=== PATIENT | female | born 2005 | race Caucasian/White ===

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

== ENCOUNTER 2025-01-07 12:49 | Outpatient (REF) | payer MEDICAID, SELFPAY ==
--- OUTSIDE RECORDS SUMMARY | 2025-01-07 13:53 | XMS_ITS | Encounter Summary ---
Author Organization [employer] Address [address] [facility] 7t [place] [address] Care Team Providers Care Ankle Patch Molder Name Role Phone Nisreen Wesley MD Primary Care Provider [phone] Estefani Pires MD Primary Care Provider + Encounter Details Date Type Department Care Team (Late st Contact Info) Description 06/22/2024 Telephone [facility] [address] [place], [place] [phone] Nisreen Wesley MD [address] [place], [place] [phone] Social History Tobacco Use Types Packs/Day Years Used Date Smoking Tobacco: Never Smokeless Tobacco: Never Alcohol Use Standard Drinks/Week Comments Never 0 (1 standard drink = 0.6 oz pur e alcohol) Depression Answer Date Recorded Patient Health Questionnaire-9 Score 17 08/20/2023 Patient Health Questionnaire-9 Score 17 08/20/2023 Last PHQ-9: Questionnaire Data Not on file 1 10/20/2022 Housing Stability Answer Date Recorded What is your housing situation today? I have glenna chapa 08/20/[address] you li ve. Do you have problems with any of the following? None of the above 08/20/2023 Food Insecurity Answer Date Recorded Within the past 12 months, y ou worried that your food would run out before you got money to buy more: Never True 08/20/2023 Within the past 12 months,th e food you bought just didn't last and you didn't have enough money to get more: Never True Transportation Answer Date Recorded In the past 12 months, has l ack of transportation kept you from medical appts, meetings, work or from getting things needed for daily living? No 08/20/2023 Utilities Answer Date Recorded In the past 12 months, has t he electric, gas, oil or water company threatened to shut off services in your home? No 08/20/2023 Depression Answer Date Recorded Patient Health Questionnaire-2 Score 5 08/20/2023 Comments Unknown Sex and Gender Information Value Date Recorded Sex Assigned at Female 08/06/2022 10:21 AM EDT Legal Sex Female 10:21 AM EDT Gender Identity Female 08/06/2022 10:21 AM EDT Sexual Orientation Straight 08/06/2022 10 :21 AM EDT documented as of this encounter Plan of Treatment Upcoming Encounters Date Type Department Care Team (Late st Contact Info) Description 02/22/2025 2:00 PM EDT Office Visit [facility] [address] [place] [address] Estefani Pires MD [address] [place] [phone] documented as of this encounter Visit Diagnoses Not on filedocumented in this encounter Additional Health Concerns Assessment Noted Time PHQ-9 Depression Total Score: 17 023 11:31 AM EST documented as of this encounter Care Teams Ankle Patch Molder Relationship Specialty Start Date End Date Nisreen Wesley MD [address] [place] [phone] PCP - General Pediatrics 09/25/17 10/15/24 Estefani Pires MD [address] [place] [phone] PCP - General Internal Medicine 10/16/24 documented as of this encounter
--- OUTSIDE RECORDS SUMMARY | 2025-01-07 13:53 | XMS_ITS | Encounter Summary ---
Author Organization [employer] Address [address] [facility] 7t [place] [address] Care Team Providers Care Stick Puller Name Role Phone Estefani Pires MD Primary Care Provider + Encounter Details Date Type Department Care Team (Latest Contact Info) Description 01/07/2025 Travel Social History Tobacco Use Types Packs/Day Years [...] Patient Health Questionnaire-2 Score 5 08/20/2023 Comments No Sex and Gender Information Value Date Recorded Sex Assigned at Female 08/06/2022 10:21 AM EDT Legal Sex Female 10:21 AM EDT Gender Identity Female 08/06/2022 10:21 AM EDT Sexual Orientation Straight 08/06/2022 10 :21 AM EDT documented as of this encounter Plan of Treatment Upcoming Encounters Date Type Department Care Team (Late st Contact Info) Description 02/22/2025 2:00 PM EDT Office Visit [facility] [address] [place] [address] Estefani Pires MD [address] [place] [address] documented as of this encounter Visit Diagnoses Not on filedocumented in this encounter Additional Health Concerns Assessment Noted Time PHQ-9 Depression Total Score: 17 023 11:31 AM EST documented as of this encounter Care Teams Stick Puller Relationship Specialty Start Date End Date Estefani Pires MD [address] [place] [phone] PCP - General Internal Medicine 10/16/24 documented as of this encounter
--- OUTSIDE RECORDS SUMMARY | 2025-01-07 13:53 | XMS_ITS | Clinical Summary ---
Author Organization [facility] Address [address] [place] [phone] Phone Care Team Providers Care Senior Administrator Support Name Role Phone Unavailable Primary Care Provider Unavailabl e Immunizations Immunization Administration Dates Next Due DTaP / Hep B / IPV 04/04/2006,01/28/2006, 006 DTaP 5 02/06/2007 Hep A, ped/adol 06/30/2007,11/07/2006 Hib (HbOC) 02/06/2007 Hib (PRP-T) 04/04/2006,01/28/2006,2005 Influenza, injectable, trivalent 11/05/2007,06/08,11/07/2006 MMRV 11/07/2006 Pneumococcal Conjugate 02/06/2007,04/04/2006,,2005 Family History Relation Name Status Comments Mother Alive Mother: Asthma, All To Bee stings,seafoof, benadryl Other Family history of ADD/ADHD, Family history of Asthma, Family history of Diabetes mellitus, Family history of Deafness, Family history of Seizure disorder, Family history of Migraines, Family history of Obesity, Family history of Elevated cholesterol Sister Alive Sister: Eczema Social History Tobacco Use Types Packs/Day Years Used Date Smoking Tobacco: Never Assessed Comments Unknown Sex and Gender Information Value Date Recorded Sex Assigned at Not on file Legal Sex Female 4:36 PM EDT Gender Identity Not on file Sexual Orientation Not on file Plan of Treatment Health Maintenance Due Date Last Done Comments IPV Vaccines (4 of 4 - 4-dose series) 2009 04/04/2006, 01/28/2006, 2005 Varicella Vaccines (2 of 2 - 2-dose childhood series) 2009 11/07/2006 DTaP,Tdap,and Td Vaccines (5 - Tdap) 2016 02/06/2007, 04/04/2006, 01/28/2006, Additional history exists HPV Vaccines (1 - 3-dose series) 2020 Men B Vaccine (1 of 2 - Standard) 2021 Influenza Vaccines (#1) 2024 11/05/19 08, 06/30/2007, 11/07/2006 COVID-19 Vaccine ( season) 2024 Hepatitis B Vaccines Completed 04/04/2006, 01/28/2006, 2005 MMR Vaccines Completed 11/07/2006 HIB Vaccines Completed 02/06/2007, 03/08, 01/28/2006, Additional history exists Pneumococcal Vaccine Completed 02/06/2007, 04/04/2006, 01/28/2006, Additional history exists Hepatitis A Vaccines Completed 06/30/2007, 11/07/19 07 Meningococcal Vaccine Aged Out No terri ibeth eligible based on patient's age to complete this topic
--- OUTSIDE RECORDS SUMMARY | 2025-01-07 13:53 | XMS_ITS | Encounter Summary ---
Author Organization [employer] Address [address] [facility] 7t [place] [address] Care Team Providers Care School Transportation Director Name Role Phone Nisreen Wesley MD Primary Care Provider [phone] Estefani Pires MD Primary Care Provider + Reason for Visit * Reason Onset Date Comments Med Refill 11/14/2023 Encounter Details Date Type Department Care Team ([facility] st Contact Info) Description 11/14/2023 Refill [facility] [address] [place], [place] [phone] Nisreen Wesley MD [address] [place] [address] Social History Tobacco Use Types Packs/Day Years [...] Description 02/22/2025 2:00 PM EDT Office Visit [facility] [address] [place] [phone] Estefani Pires MD [address] [place] [address] documented as of this encounter Visit Diagnoses Not on filedocumented in this encounter Additional Health Concerns Assessment Noted Time PHQ-9 Depression Total Score: 17 023 11:31 AM EST documented as of this encounter Care Teams School Transportation Director Relationship Specialty Start Date End Date Nisreen Wesley MD [address] [place] [phone] PCP - General Pediatrics 09/25/17 10/15/24 Estefani Pires MD [address] [place] [phone] PCP - General Internal Medicine 10/16/24 documented as of this encounter
--- OUTSIDE RECORDS SUMMARY | 2025-01-07 13:53 | XMS_ITS | Encounter Summary ---
Author Organization [employer] Address [address] [place] [address] 7t [place] [address] Care Team Providers Care Retail Account Specialist Name Role Phone Nisreen Wesley MD Primary Care Provider [phone] Estefani Pires MD Primary Care Provider + Encounter Details Date Type Department Care Team (Late st Contact Info) Description 10/23/2022 Orders Only [facility] [address] [place], [place] [phone] Narda Gutierrez LPN Social History Tobacco Use Types Packs/Day Years [...] Description 02/22/2025 2:00 PM EDT Office Visit [facility] [address] [place], [place] [phone] Estefani Pires MD [address] [place], [place] [phone] documented as of this encounter Visit Diagnoses Not on filedocumented in this encounter Care Teams Retail Account Specialist Relationship Specialty Start Date End Date Nisreen Wesley MD [address] [place], [place] [phone] PCP - General Pediatrics 09/25/17 10/15/24 Estefani Pires MD [address] [place] [phone] PCP - General Internal Medicine 10/16/24 documented as of this encounter
--- OUTSIDE RECORDS SUMMARY | 2025-01-07 13:53 | XMS_ITS | Encounter Summary ---
Author Organization [facility] Address [address] [place] [address] 7t [place] [address] Care Team Providers Care Barrel Turner Name Role Phone Estefani Pires MD Primary Care Provider + Reason for Referral * Consultation (Routine) - Pending Review Specialty Diagnoses / Procedures Referred By Imani moctezuma Referred To Contact Physical Therapy Diagnoses Arthralgia of left knee Estefani Pires MD [address] [place] [address] Phone: tel: fax: Referral ID Status Reason Start Date Expiration Date Visits Requested Visits Authorized [id number] Pending Review Specialty Services Required 01/07/2025 01/07/2026 1 1 Reason for Visit * Reason Comments Follow-up Encounter Details Date Type Department Care Team ([facility] Contact Info) Description 01/07/2025 11:30 AM EDT Office Visit [facility] [address] [place], [place] [phone] Estefani Pires MD [address] [place], [place] [phone] Positive ESTEFANI (antinuclear antibody) (Primary Dx); Arthralgia of both hands; Arthralgia of left knee Social History Tobacco Use Types Packs/Day Years Used Date Smoking Tobacco: Never Smokeless Tobacco: Never Tobacco Cessation:Counseling Given: Not Answered Alcohol Use Standard Drinks/Week Comments Never 0 [...] AM EDT documented as of this encounter Last Filed Vital Signs Vital Sign Reading Time Taken Comments Blood Pressure 99/62 01/07/2025 11:57 AM EDT Pulse 83 01/07/2025 11:57 AM EDT Temperature 36.3 ??C (97.4 ??F) 01/07/2025 11:57 AM E DT Respiratory Rate 16 01/07/2025 11:57 AM EDT Oxygen Saturation 98% 01/07/2025 11:57 AM EDT Inhaled Oxygen Concentration - - Weight 48.6 kg (107 lb 4 oz) 01/07/2025 11:57 AM EDT Height 147.3 cm (4' 10 ) 01/07/2025 11:57 AM EDT Body Mass Index 22.42 01/07/2025 11:57 AM EDT documented in this encounter Miscellaneous Notes * Patient Education Note - Estefani Pires MD - 01/07/2025 4:25 PM EDT Images from the original note were not included. Patient Education Table of Contents Antinuclear Antibody Test To view videos and all your education online visit, [email or web address] or scan this QR code with your smartphone. Access to this content will in one year. Antinuclear Antibody Test Why am I having this test? This is a test that is used to help diagnose systemic lupus erythematosus (SLE) and other autoimmune diseases. An autoimmune disease is a disease in which the body's own defense system (immune system) attacks its organs. What is being tested? This test checks for antinuclear antibodies (ESTEFANI) in the blood. The presence of ESTEFANI is associated with several autoimmune diseases. It is seen in almost all people with lupus. What kind of sample is taken? A blood sample is required for this test. It is usually collected by inserting a needle into a blood vessel. How are the results reported? Your test results will be reported as either positive or negative. What do the results mean? A positive test result may mean that you have: Lupus. Other autoimmune diseases, such as rheumatoid arthritis, scleroderma, or Sj?gren syndrome. Talk with your health care provider about what your results mean. In some cases, your health care provider may do more testing to confirm the results. More testing may be done because other conditions can sometimes cause a positive result, such as: Liver dysfunction. Myasthenia gravis. Infectious mononucleosis. Questions to ask your health care provider Ask your health care provider, or the department that is doing the test: When will my results be ready? How will I get my results? What are my treatment options? What other tests do I need? What are my next steps? Summary This is a test that is used to help diagnose systemic lupus erythematosus (SLE) and other autoimmune diseases. An autoimmune disease is a disease in which the body's own defense system (immune system) attacks the body. This test checks for antinuclear antibodies (ESTEFANI) in the blood. The presence of ESTEFANI is associated with several autoimmune diseases. It is seen in almost all people with lupus. Your test results will be reported as either positive or negative. Talk with your health care provider about what your results mean. This information is not intended to replace advice given to you by your health care provider. Make sure you discuss any questions you have with your health care provider. Document Released: 2005 Document Updated: 2022-05-27 Document Reviewed: 2022-05-27 Elsevier Patient Education ? 2024 [employer] documented in this encounter Plan of Treatment Upcoming Encounters Date Type Department Care Team (Late st Contact Info) Description 02/22/2025 2:00 PM EDT Office Visit [facility] [address] [place] [address] Estefani Pires MD [address] [place], [place] [phone] Scheduled Orders Name Type Priority Associated Diagnoses Orde r Schedule XR Knee 4+ Views Left Imaging Routine Arthralgia of left knee Ordered: 01/07/2025 Cyclic Citrullinated Peptide (CCP) Antibody (IgG) Lab Routine Positive ESTEFANI (antinuclear antibody) Arthralgia of both hands Expected: 01/07/2025 (Approximate), Expires: 01/07/2026 Anti-DNAse B antibody Lab Routine Positive ESTEFANI (antinuclear antibody) Arthralgia of both hands Expected: 01/07/2025 (Approximate), Expires: 01/07/2026 Sjogrens syndrome-A extractable nuclear antibody Lab Routine Positive ESTEFANI (antinuclear antibody) Arthralgia of both hands Expected: 01/07/2025 (Approximate), Expires: 01/07/2026 Mononucleosis Test, Qualitative Lab Routine Positive ESTEFANI (antinuclear antibody) Arthralgia of both hands Expected: 01/07/2025 (Approximate), Expires: 01/07/2026 Scheduled Referrals Name Type Priority Associated Diagnoses Orde r Schedule Referral to Physical Therapy Outpatient Referral Routine Arthralgia of left knee Expected: 01/07/2025 (Approximate), Expires: 01/07/2026 documented as of this encounter Visit Diagnoses Diagnosis Positive ESTEFANI (antinuclear antibody)- Primary Other and unspecified nonspecific immunological findings Arthralgia of both hands Arthralgia of left knee documented in this encounter Additional Health Concerns Assessment Noted Time PHQ-9 Depression Total Score: 17 08/20/ 023 11:31 AM EST documented as of this encounter Care Teams Barrel Turner Relationship Specialty Start Date End Date Estefani Pires MD [address] [place] [address] PCP - General Internal Medicine 10/16/24 documented as of this encounter
--- OUTSIDE RECORDS SUMMARY | 2025-01-07 13:53 | XMS_ITS | Clinical Summary ---
Author Organization [employer] Address [address] [place] [address] [address] [place] [address] Care Team Providers Care Director Of Design Name Role Phone Nicolas Pires MD Primary Care Provider + Allergies No known active allergies Medications solifenacin (VESIcare) 5 MG tablet Take 5 mg by mouth in the morning. 01/03/2023 Active Concerta 27 MG CR tablet Take 27 mg by mouth in the morning. 07/10/2023 Active desmopressin (DDAVP) 0.2 MG tablet Take 200 mcg by mouth 2 times daily. 01/03/2023 Active sertraline (Zoloft) 25 MG tablet Take 25 mg by mouth Once per day. 02/04/2024 Active loratadine (Claritin) 10 MG tablet Take 1 tablet (10 mg) by mouth if needed each day for allergies. 90 tablet 3 10/23/2024 6 Active albuterol 108 (90 Base) MCG/ACT inhaler Inhale 2 puffs every 6 (six) hours if needed for wheezing. 18 g 10/23/2024 6 Active hydrOXYzine pamoate (Vistaril) 25 MG capsule Take 1 capsule (25 mg) by mouth every 8 (eight) hours if needed for anxiety. 90 capsule 3 10/23/2024 6 Active ibuprofen 400 MG tabletIndicatio ns:Precordial pain 1 tab q 6 hours prn fever or pain. 30 tablet 1 10/23/2024 Active Multiple Vitamin (multivitamin) tablet Take 1 tablet by mouth Once per day. 90 tablet 1 12/29/2024 Active Active Problems Problem Noted Date Diagnosed Date Positive NICOLAS (antinuclear antibody) 01/07/2025 Arthralgia of both hands 12/29/2024 Assessment & Plan (12/29/2024 1:13 PM EDT): Probably DJD, we talked about avoiding cracking of her hands and other joints. Will do inflammatory arthritis workup and follow-up at next appointment Take Tylenol as needed for pain Chronic TMJ pain 12/29/2024 Assessment & Plan (12/29/2024 1:14 PM EDT): I discussed with patient at length the potential causes of this condition including psychological stress, I suggested to discuss it with psychotherapist or psychiatrist. I advised to have full dental evaluation including malocclusion conditions and ask the dentist for an mouth guard to use at night. Follow-up with me after dental evaluation Precordial pain 10/23/2024 Assessment & Plan (10/23/2024 3:52 PM EST): Patient has atypical chest pain, EKG is normal and she doesn't have significant CV RF, unlikely to be cardiac origin. It is most likely muscular or GERD, patient will keep track of symptoms and follow-up with me as needed. Recurrent bronchospasm 10/23/2024 Assessment & Plan (12/29/2024 1:12 PM EDT): Recently treated by [facility], doing well on albuterol as needed. I gave patient information regarding PFT so that she can reschedule it at appropriate time for her. We discussed about avoiding smoking and get all age-appropriate vaccines Assessment & Plan (10/23/2024 2:02 PM EST): Apparently triggered last year by RSV infection. Improved on prednisone, continue albuterol PRN. I will order PFT and Methacholine test to rule out asthma. ADHD 08/11/2024 Assessment & Plan (12/29/2024 1:15 PM EDT): She is doing well on Concerta prescribed by mental health provider We discussed importance of taking medication regularly, avoid all prescribed medications or recreational substances Assessment & Plan (10/23/2024 2:04 PM EST): Patient is taking Concerta but not regularly and is not following up with psychiatrist. Advised to schedule appointment with psychiatrist and address medication use. Discussed with her the importance of taking medication regularly. Anxiety 08/11/2024 Flexural eczema 07/24/2018 Intermittent urinary incontinence 04/28/2018 Seasonal allergies 02/08/2017 Resolved Problems Problem Noted Date Diagnosed Date Resolved Date Encounter for preventive health examination 07/06/2024 10/23/2024 Assessment & Plan (07/06/2024 4:20 PM EDT): Discussed with patient re increase fresh fruit and vegetable intake. Counseled re moderate exercise as tolerated, up to 20min/d Patient feels safe at home. Order T-spot PAP smear, not due, will fu at age 23 or earlier PRN. Lipids/FBS: UTD, next one due in 5y Vaccinations: Will have Influenza IZ today, advised to get Covid series. Will check MMR and Hepatitis titers. Dental visit: Overdue, has appt next mo. Pain in lower limb 06/06/2023 3 Behavior concern 04/28/2018 10/23/2024 Encounters Date Type Department Care Team Description 01/07/2025 11:30 AM EDT Office Visit [facility] [address] [place] [phone] Nicolas Pires MD Positive NICOLAS (antinuclear antibody) (Primary Dx); Arthralgia of both hands; Arthralgia of left knee 01/07/2025 Travel 12/29/2024 11:30 AM EDT Office Visit [address] [address] Nicolas Pires MD Recurrent bronchospasm (Primary Dx); Chronic TMJ pain; Arthralgia of both hands; Attention deficit hyperactivity disorder (ADHD), unspecified ADHD type 12/29/2024 Orders Only [address] [address] Nicolas Pires MD 12/29/2024 Travel 12/25/[address] [address] Nicolas Pires MD 12/18/2024 Population Health Risk Score [facility] ([facility]) Department [address] [place] [phone] Provider, Population Health Generic 10/23/2024 12:00 PM EST Office Visit [facility] [address] [place] [address] Nicolas Pires MD Recurrent bronchospasm (Primary Dx); Precordial pain; Attention deficit hyperactivity disorder (ADHD), unspecified ADHD type 10/23/2024 Travel 10/22/2024 Telephone [facility] [address] [place] [address] Harper Barton MA Chart prep 10/16/2024 Telephone [facility] [address] [place], [place] [phone] Nisreen Wesley MD ER Follow-up from Last 3 Months Immunizations Name Administration Dates Next Due DTaP 02/06/2007 DTaP / Hep B / IPV 04/04/2006,01/28/2006, 006 DTaP / IPV 07/18/2010 DTaP, 5 pertussis antigens 02/06/2007 HPV 9-Valent 05/01/2019,04/28/2018 Hep A, ped/adol, 2 dose 06/30/2007,11/07/2006 Hib (HbOC) 02/06/2007, 6,01/28/2006,11/21 Hib (PRP-T) 04/04/2006,01/28/2006,2005 Influenza injectable quadriv alent preservative free 07/27/2019,06/25/2018,01/05/2015 Influenza, IIV3, injectable 11/05/2007, 7,11/07/2006 Influenza, live, intranasal 07/23/2012 Influenza, seasonal, injecta ble, preservative free 07/06/2024 MMR 07/18/2010,11/07/2006 MMRV 11/07/2006 Meningococcal MCV4P ACYW-135 05/22/2022,04/28/20 18 Pneumococcal Conjugate PCV 7 02/06/2007, 04/04/2006,01/28/2006,11/21 Tdap 04/28/2018 Varicella 07/18/2010 Family History Medical History Relation Name Comments Depression Sister Relation Name Status Comments Sister Social History Tobacco Use Types Packs/Day Years [...] Orientation Straight 08/06/2022 10 :21 AM EDT Last Filed Vital Signs Vital Sign Reading [...] Mass Index 22.42 01/07/2025 11:57 AM EDT Plan of Treatment Upcoming Encounters Date Type Department Care Team (Late st Contact Info) Description 02/22/2025 2:00 PM EDT Office Visit [facility] [address] [place] [address] Nicolas Pires MD [address] [place], [place] [phone] Health Maintenance Due Date Last Done Comments Dental Oral Exam 2005 Dental Prophylaxis 2005 Dental X-Ray: Bitewings 2005 Dental X-Ray: Full Mouth 2005 Family Planning (PISQ) 2020 Chlamydia and Gonorrhea Screening 02/13/2023 02/13/2022 Depression Monitoring (PHQ-9) 02/18/2024 08/20/2023, 08/20/2023 Fluoride Varnish 02/18/2024 08/20/2023 COVID-19 Vaccine ( season) 2024 Depression Screening 08/20/2024 08/20/2023, 08/20/20 SDOH Screening 08/20/2024 08/20/2023 Alcohol/Substance Use Screening 12/29/2025 12/29/2024 Tobacco Screening 01/07/2026 01/07/2025 DTaP/Tdap/Td Vaccines (7 - Td or Tdap) 04/28/2028 04/28/2018, 07/18/2010, 02/06/2007, Additional history exists Zoster Vaccines (1 of 2) 2055 RSV Patients and Patients Aged 60 years or older (1 - 1-dose 75+ series) 2080 Hepatitis B Vaccines Completed 04/04/2006, 01/28/2006, 2005 HIB Vaccines Completed 02/06/2007, 03/08, 04/04/2006, Additional history exists Pneumococcal Vaccine: Pediatrics (0 to 5 Years) and At-Risk Patients (6 to 49) Years) Aged Out 02/06/2007, 04/04/2006, 01/28/2006, Additional history exists No longer eligible based on patient's age to complete this topic Hepatitis A Vaccines Completed 06/30/2007, 11/07/19 07 IPV Vaccines Completed 07/18/2010, 03/08, 01/28/2006, Additional history exists MMR Vaccines Completed 07/18/2010, 10/2006, 11/07/2006 Varicella Vaccines Completed 07/18/2010, 11/07/2006 HPV Vaccines Completed 05/01/2019, 04/28/2018 Meningococcal Vaccine Completed 05/22/2022, 018 HIV Screening Completed 08/14/2023 Influenza Vaccine Completed 07/06/2024, , 06/25/2018, Additional history exists Hepatitis C Screening Completed 12/29/2024, 024 RSV under 20 months Aged Out No longe r eligible based on patient's age to complete this topic Rotavirus Vaccines Aged Out No longer eligible based on patient's age to complete this topic Procedures Procedure Name Priority Date/Time Associated Diagnosis Comments XR HAND 3+ VIEWS BILATERAL Routine 12/29/2024 12:46 PM EDT CBC WITH AUTO DIFFERENTIAL Routine 12/29/2024 12:28 PM EDT Arthralgia of both hands SED RATE BY MODIFIED WESTERGREN Routine 12/29/2024 12:28 PM EDT Arthralgia of both hands Chronic TMJ pain HEPATITIS PANEL, GENERAL Routine 12/29/2024 12:25 PM EDT Arthralgia of both hands URIC ACID Routine 12/29/2024 12:25 PM EDT Arthralgia of both hands RHEUMATOID FACTOR Routine 12/29/2024 12: 25 PM EDT Arthralgia of both hands Chronic TMJ pain C-REACTIVE PROTEIN Routine 12/29/2024 12 :25 PM EDT Arthralgia of both hands NICOLAS SCREEN, IFA, W/REFL TITER AND PATTERN Routine 12/29/2024 12:25 PM EDT Arthralgia of both hands Chronic TMJ pain ECG 12-LEAD Routine 10/23/2024 3:51 PM EST Precordial pain TOPICAL APPLICATION OF FLUORIDE VARNISH Routine 08/20/2023 11:15 AM EST HIV 1/2 ANTIGEN/ANTIBODY, FOURTH GENERATION W/RFL Routine 08/14/2023 2:27 PM EST Weight loss, unintentional ZZZ HISTORICAL CHLAMYDIA/N. GONORRHOEAE RNA, TMA, UROGENITAL Routine 02/13/2022 9:55 AM EDT from Last 3 Months or Most Recently Relevant to Health Maintenance Results * XR Hand 3+Views Bilateral (12/29/2024 12:46 PM EDT) Anatomical Region Laterality Modality Upper Extremities, Hand Bilateral Radiogra phic Imaging 12/29/2024 12:4 6 PM EDT Narrative 12/29/2024 1:40 PM EDT ? [facility] ?[address] ?[place] [address] ?XRay Report ? Signed ? Patient: Morris,Lizmary ?MR#: [id number] ?? 50 ? : 2005 ?Acct:[id number] ? Age/Sex: 19 / F ?ADM Date: 12/29/24 ? Loc: HO.[facility] ? Attending Dr: Nicolas Pires MD ? Ordering Physician: Nicolas Pires MD ?? Date of Service: 12/29/24 ?? Procedure(s): XR Hand Bilat min 3v ?? Accession Number(s): [id number] ? cc: Nicolas Pires MD ? EXAMINATION: ??XR HAND 3 VIEWS BILATERAL ? HISTORY: PAIN ? COMPARISON: There are no prior studies available for comparison. ? FINDINGS: ? Four views of the each hand are submitted. ??Osseous mineralization is ?? normal. ??There is no fracture or dislocation. ??The joint spaces are ?? preserved. ??The soft tissues are unremarkable. ? XR/XR Hand Bilat min 3v ?? IMPRESSION: ? Unremarkable examination of the bilateral hands. ? Electronically signed by: ??Cheng Esparza MD ??12/29/2024 01:36 PM EDT ?? RP ? Dictated By: ?Cheng Esparza MD ? Signed By: ?<Electronically signed by Cheng Esparza MD in OV> ?12/29/24 1336 ? DD/ 1246 ? TD/TT: 12/29/24 1246 ? Rental Salesperson: ? Procedure Note D[place]ter, Image - 12/29/2024 [place] [address] XRay Report Signed Patient: Fátima Morris#: [id number] 50 : 2005Acct:[id number] Age/Sex: 19 FADM Date: 12/29/24 Loc: .[facility] Attending Dr: Nicolas Pires MD Ordering Physician: Nicolas Pires MD Date of Service: 12/29/24 Procedure(s): XR Hand Bilat min 3v Accession Number(s): [id number] cc: Nicolas Pires MD EXAMINATION: XR HAND 3 VIEWS BILATERAL HISTORY: PAIN COMPARISON: There are no prior studies available for comparison. FINDINGS: Four views of the each hand are submitted. Osseous mineralization is normal. There is no fracture or dislocation. The joint spaces are preserved. The soft tissues are unremarkable. XR/XR Hand Bilat min 3v IMPRESSION: Unremarkable examination of the bilateral hands. Electronically signed by: Cheng Esparza MD 12/29/2024 01:36 PM EDT Dictated By: Cheng Esparza MD Signed By: <Electronically signed by Cheng Esparza MD in OV> 12/29/24 1336 DD/ 1246 TD/TT: 12/29/24 1246 Rental Salesperson: Nicolas Pires MD IMG XR PROCEDURES Edited Result - Final * (ABNORMAL) CBC auto differential (12/29/2024 12:28 PM EDT) White Blood Count 9.2 4.8 - 10.8 X10*3/uL [facility] Red Blood Count 4.65 4.20 - 5.50 X10*6/uL [facility] Hemoglobin 13.1 12.0 - 16.0 g/dl [facility] Hematocrit 39.7 37.0 - 47.0 % [facility] Mean Corpuscular Volume 85.4 80.0 - 98.0 fL [facility] Mean Corpuscular Hemoglobin 28.2 27.0 - 33.0 pg [facility] Mean Corpuscular HGB Conc 33.0 31.0 - 35.0 g/dl [facility] Red Cell Distribution Width 13.5 11.0 - 16.0 % [facility] Platelet Count 338 160 - 400 X10*3/uL [facility] Mean Platelet Volume 9.8 9.4 - 12.3 fL [facility] Neutrophils Percent Auto 70.4 45 - 73 % [facility] Imm Gran Pct Auto 0.4 0.0 - 0.4 % [facility] Lymphocytes Percent Auto 19.3(L) 20 - 40 % [facility] Monocytes Percent Auto 6.8 2 - 11 % [facility] Eosinophils Percent Auto 2.6 0 - 4 % [facility] Basophils Percent Auto 0.5 0 - 2 % [facility] NRBC Pct Auto 0.0 0.0 - 0.2 /100WBC [facility] Neutrophils Absolute Auto 6.5 2.0 - 8.3 x10*3/uL [facility] Imm Gran Abs Auto 0.04(H) 0.00 - 0.03 X10*3/uL [facility] Lymphocytes Absolute Auto 1.8 1.2 - 4.9 X10*3/uL [facility] Monocytes Absolute Auto 0.6 0.1 - 1.2 X10*3/uL [facility] Eosinophils Absolute Auto 0.2 0.0 - 0.4 X10*3/uL [facility] Basophils Absolute Auto 0.1 0.0 - 0.2 X10*3/uL [facility] NRBC Abs Auto 0.000 0.0 - 0.012 X10*3/uL [facility] Blood Venous blood specimen / Unknown 12/29/2024 12:28 PM EDT 12/29/2024 1:12 PM EDT us Nicolas Pires MD LAB BLOOD ORDERABLES Fin al Result Performing Organization Address [facility] Co de Phone Number [facility] [address] [place] [address] [phone] * Sed Rate by Modified Esvinren (12/29/2024 12:28 PM EDT) Erythrocyte Sedimentation Rate 4 0 - 20 MM/HR [facility] Comment:Patients with polycy themia and many hemoglobin abnormalitiesmay have depressed sed rates whereas patients with anemiamay have elevated sed rates. Blood Venous blood specimen / Unknown 12/29/2024 12:28 PM EDT 12/29/2024 1:12 PM EDT Nicolas Pires MD LAB BLOOD ORDERABLES Fin al Result Performing Organization Address [facility] Co de Phone Number [facility] [address] [place] [address] [phone] * Hepatitis Panel, General (12/29/2024 12:25 PM EDT) Hepatitis A IgM Nonreactive Nonreactive [facility] Comment:IgM antibodies to GUADARRAMA V not detected; does not exclude earlyacute or recovered HAV infection. ~Hepatitis B Surface Antibody REACTIVE Nonreactive [facility] Comment:REACTIVE: > 11.99 mI U/mL Hepatitis B Core Antibody Nonreactive Nonreactive [facility] Hepatitis C Antibody Nonreactive Nonreactive [facility] Comment:Antibodies to HCV no t detected; does not exclude early acuteHCV infection. Hepatitis B Surface Ag Negative Negative [facility] Blood 12/29/2024 12:2 5 PM EDT 12/29/2024 1:12 PM EDT Nicolas Pires MD LAB BLOOD ORDERABLES Fin al Result Performing Organization Address [facility] de Phone Number [facility] [address] [place] [phone] * Rheumatoid Factor (12/29/2024 12:25 PM EDT) Rheumatoid Factor <13.0 <15.0 IU/mL [facility] Blood Venous blood specimen / Unknown 12/29/2024 12:25 PM EDT 12/29/2024 1:12 PM EDT Nicolas Pires MD LAB BLOOD ORDERABLES Fin al Result Performing Organization Address [facility] de Phone Number [facility] [address] [place] [phone] * C-reactive Protein (12/29/2024 12:25 PM EDT) C Reactive Protein <0.10 < or = 0.50 mg/dL [facility] Blood Venous blood specimen / Unknown 12/29/2024 12:25 PM EDT 12/29/2024 1:12 PM EDT Nicolas Pires MD LAB BLOOD ORDERABLES Fin al Result Performing Organization Address [facility] de Phone Number [facility] [address] [place] [phone] * (ABNORMAL) NICOLAS Screen,IFA, with Reflex to Titer and Pattern (12/29/2024 12:25 PM EDT) Anti Nuclear Antibody Screen POSITIV E(A) NEGATIVE [facility] Comment:NICOLAS IFA is a first l ine screen for detecting thepresence of up to approximately 150 autoantibodies invarious autoimmune diseases. A positive NICOLAS IFA resultis suggestive of autoimmune disease and reflexes totiter and pattern. Further laboratory testing may beconsidered if clinically indicated.For additional information, please refer tohttp://education.[employer]/faq/NLB952(This link is being provided for informational/educational purposes only.) NICOLAS Titer 1:80(A) titer [facility] Comment:A low level NICOLAS tite r may be present in pre-clinicalautoimmune diseases and normal individuals. Reference Range <1:40 Negative 1:40-1:80 Low Antibody Level >1:80 Elevated Antibody Level NICOLAS Pattern Nuclear , Homogen eous(A) [facility] Comment:Homogeneous pattern is associated with systemic lupuserythematosus (SLE), drug-induced lupus and juvenileidiopathic arthritis.AC-1: HomogeneousInternational Consensus on NICOLAS Patterns(https://doi.org/10.1515/lepz-8601-7014)THIS TEST WAS PERFORMED AT:[employer] [place] [phone] NASH MD NICOLAS TITER 2 (REF LAB) [facility] NICOLAS Pattern 2 [facility] NICOLAS TITER 3 [facility] NICOLAS PATTERN 3 [facility] Blood Venous blood specimen / Unknown 12/29/2024 12:25 PM EDT 12/29/2024 1:12 PM EDT us Nicolas Pires MD LAB BLOOD ORDERABLES Fin al Result [facility] [address] [place] [phone] * Uric acid (12/29/2024 12:25 PM EDT) Uric Acid 3.5 2.4 - 5.7 mg/dL [facility] Blood Venous blood specimen / Unknown 12/29/2024 12:25 PM EDT 12/29/2024 1:12 PM EDT Nicolas Pires MD LAB BLOOD ORDERABLES Fin al Result [facility] [address] [place] [phone] * ECG 12 lead (10/23/2024 3:51 PM EST) Narrative Nicolas Pires MD - 10/23/2024 3:51 PM EST NSR @76 bpm, normal axis. Normal ST/T, neg ischemic ??changes. Normal ECG Nicolas Pires MD ECG ORDERABLES Final Re sult * HIV-1/2 Antigen and Antibodies, Fourth Generation, with Reflexes (08/14/2023 2:27 PM EST) [facility] HIV AB/AG Nonreactive Nonreactive [facility] Comment:HIV-1 p24 Ag and/or HIV-1/HIV-2 Ab not detected.A test result that is nonreactive does not exclude thepossibility of exposure to or infection with HIV-1 and/orHIV-2. Nonreactive results in this assay for individualswith prior exposure to HIV-1 and/or HIV-2 may be due toantigen and antibody levels that are below the limit ofdetection of this assay.The [employer] HIV Ag/Ab Combo assay result andsupplemental assay results should be interpreted inconjunction with the patient's clinical presentation,history and other laboratory results. If the results areinconsistent with clinical evidence, additional testing issuggested to confirm the result. Blood Venous blood specimen / Unknown 08/14/2023 2:27 PM EST 08/14/2023 4:12 PM EST us Rupert Coyle MD LAB BLOOD ORDERABLES Final Result Performing Organization Address City/[facility]/ZIP Co de Phone Number [facility] [address] [place] [phone] * CHLAMYDIA/N. GONORRHOEAE RNA, TMA, UROGENITAL (02/13/2022 9:55 AM EDT) Chlamydia trachomatis RNA, TMA, Urogenital NOT DETECTED NOT DETECTED [facility] COMMENT SEE COMMENT [facility] Comment: The analytical performance characteristics of this assay, when used to test SurePath(TM) specimens have been determined by [employer]. The modifications have not been cleared or approved by the FDA. This assay has been validated pursuant to the CLIA regulations and is used for clinical purposes. ?? For additional information, please refer to https://education.[employer]/faq/JEL093 (This link is being provided for information/ educational purposes only.) ?? Neisseria gonorrhoeae RNA, TMA, Urogenital NOT DETECTED NOT DETECTED [facility] 02/13/2022 9:55 AM EDT us Rosemarie Barry MD HISTORICAL/NON ORDERABLE L ABS Final Result Performing Organization Address City/State/[facility] Co de Phone Number [facility] [address] from Last 3 Months or Most Recently Relevant to Health Maintenance Insurance [facility] [employer] [place] [employer] [place] Care Teams Director Of Design Relationship Specialty Start Date End Date Nicolas Pires MD [address] [place] [phone] PCP - General Internal Medicine 10/16/24
--- OUTSIDE RECORDS SUMMARY | 2025-01-07 13:53 | XMS_ITS | Encounter Summary ---
Author Organization [facility] Address [address] [place] [address] [address] [place] [address] Care Team Providers Care Test Technician Name Role Phone Nisreen Wesley MD Primary Care Provider [phone] Estefani Pires MD Primary Care Provider + Reason for Visit * Reason Comments Med Refill Encounter Details Date Type Department Care Team (Late st Contact Info) Description 10/22/2022 Refill [facility] [address] [place], [place] [phone] Rosemarie Barry MD [address] [place], [place] [phone] Social History Tobacco Use Types Packs/Day Years Used Date Smoking Tobacco: Never Assessed Comments Unknown Sex and Gender Information Value Date Recorded Sex Assigned at Female 08/06/2022 10:21 AM EDT Legal Sex Female 10:21 AM EDT Gender Identity Female 08/06/2022 10:21 AM EDT Sexual Orientation Straight 08/06/2022 10 :21 AM EDT documented as of this encounter Miscellaneous Notes * Telephone Encounter - Nisreen Cameron MD - 10/23/2022 12:52 PM EST Was only needing to take med until she ran out. Does not need refill documented in this encounter Plan of Treatment Upcoming Encounters Date Type Department Care Team (Late Contact Info) Description 02/22/2025 2:00 PM EDT Office Visit [facility] [address] [place], [place] [phone] Estefani Pires MD [address] [place] [phone] documented as of this encounter Visit Diagnoses Not on filedocumented in this encounter Care Teams Test Technician Relationship Specialty Start Date End Date Nisreen Wesley MD [address] [place] [phone] PCP - General Pediatrics 09/25/17 10/15/24 Estefani Pires MD [address] [place] [phone] PCP - General Internal Medicine 10/16/24 documented as of this encounter
--- OUTSIDE RECORDS SUMMARY | 2025-01-07 13:53 | XMS_ITS | Encounter Summary ---
Author Organization [facility] Address [address] [place] [phone] Phone Care Team Providers Care High School Coordinator Name Role Phone Terry Aranda MD Primary Care Provider [phone] Encounter Details Date Type Department Care Team (Late st Contact Info) Description 05/23/2017 Conversion Encounter [facility] [place] [address] [place] [address] Social History Tobacco Use Types Packs/Day Years Used Date Smoking Tobacco: Never Assessed Comments Unknown Sex and Gender Information Value Date Recorded Sex Assigned at Not on file Legal Sex Female 4:36 PM EDT Gender Identity Not on file Sexual Orientation Not on file documented as of this encounter Plan of Treatment Not on file documented as of this encounter Visit Diagnoses Not on filedocumented in this encounter Care Teams High School Coordinator Relationship Specialty Start Date End Date Terry Aranda MD [address] [place] [address] PCP - General 05/17/17 12/19/22 documented as of this encounter
--- OUTSIDE RECORDS SUMMARY | 2025-01-07 13:53 | XMS_ITS | Encounter Summary ---
Author Organization [facility] Address [address] [place] [address] Phone Care Team Providers Care Cancer Registry Manager Name Role Phone Terry Aranda MD Primary Care Provider [phone] Encounter Details Date Type Department Care Team (Late st Contact Info) Description 05/07/2011 Documentation EM Family Medicine [address] [place] [address] Family Medicine, Physician [address] [place], [place] [phone] Social History Tobacco Use Types Packs/Day Years [...] on filedocumented in this encounter Care Teams Cancer Registry Manager Relationship Specialty Start Date End Date Terry Aranda MD [address] [place] [address] PCP - General 05/17/17 12/19/22 documented as of this encounter
--- OUTSIDE RECORDS SUMMARY | 2025-01-07 13:53 | XMS_ITS | Encounter Summary ---
Author Organization [facility] Address [address] [place] [address] [address] [place] [address] Care Team Providers Care Fitness Sales Consultant Name Role Phone Nisreen Wesley MD Primary Care Provider [phone] Estefani Pires MD Primary Care Provider + Reason for Visit * Reason Comments Med Refill Encounter Details Date Type Department Care Team (Late st Contact Info) Description 11/25/2022 Refill [facility] [address] [place] [address] [phone] Rosemarie Barry MD [address] [place] [phone] Social History Tobacco Use Types Packs/Day Years [...] Description 02/22/2025 2:00 PM EDT Office Visit [facility] [address] [place] [address] [phone] Estefani Pires MD [address] [place], [place] [phone] documented as of this encounter Visit Diagnoses Not on filedocumented in this encounter Care Teams Fitness Sales Consultant Relationship Specialty Start Date End Date Nisreen Wesley MD [address] [place] [address] PCP - General Pediatrics 09/25/17 10/15/24 Estefani Pires MD [address] [place] [address] PCP - General Internal Medicine 10/16/24 documented as of this encounter
[2025-01-07 14:26] LABS: Monotest Negative (Negative)
[2025-01-12 15:24] LABS: Cyclic Citrullinated Peptide <16 UNITS
[2025-01-12 20:23] LABS: Strep DNASE B Antibody 103 U/mL (<301)
== END 2025-01-07 12:50 | disposition home or self-care (01) ==
LOC: HO.HHCL 12:49
PROVIDERS: Visit Provider Internal Medicine
DX: R76.8 Other specified abnormal immunological findings in serum (principal); M25.541 Pain in joints of right hand; M25.542 Pain in joints of left hand
CPT/HCPCS: 36415; 86200; 86215; 86308

== ENCOUNTER 2025-08-19 12:07 | Outpatient (REF) | payer MEDICAID, SELFPAY ==
[2025-08-19 14:14] LABS: Anion Gap 14 (12-20); Blood Urea Nitrogen 8 mg/dL (9-16); Calcium 9.8 mg/dL (8.4-10.2); Carbon Dioxide 24 mmol/L (22-29); Chloride 107 mmol/L (96-108); Estimated Glomerular Filt Rate > 60; Potassium 4.2 mmol/L (3.3-5.1); Sodium 141 mmol/L (135-145)
[2025-08-19 15:16] LABS: Free T4 (Free Thyroxine) 1.20 ng/dL (0.71-1.85)
--- OUTSIDE RECORDS SUMMARY | 2025-08-19 15:21 | XMS_ITS | Encounter Summary ---
Author Organization [employer] Address [address] [facility] 7[address] [place] [address] Care Team Providers Care Construction Field Engineer Name Role Phone Nisreen Wesley MD Primary Care Provider [phone] Estefani Pires MD Primary Care Provider + Encounter Details Date Type Department Care Team ([facility] st Contact Info) Description 06/22/[address] [facility] [address] [place], [place] [phone] Nisreen Wesley MD [address] [place], [place] [phone] Social History Tobacco Use Types Packs/Day Years [...] documented as of this encounter Care Teams Construction Field Engineer Relationship Specialty Start Date End Date Nisreen Wesley MD [address] [place] [address] PCP - General Pediatrics 09/25/17 10/15/24 Estefani Pires MD [address] [place] [address] PCP - General Internal Medicine 10/16/24 documented as of this encounter
--- OUTSIDE RECORDS SUMMARY | 2025-08-19 15:21 | XMS_ITS | Clinical Summary ---
Author Organization [facility] Address [address] [place] [phone] Phone Care Team Providers Care Service Tech Name Role Phone Unavailable Primary Care Provider [...] 2 - Standard) 2021 Influenza Vaccines (#1) 2025 11/05/19 08, 06/30/2007, 11/07/2006 COVID-19 Vaccine ( season) 2025 Hepatitis B Vaccines Completed 04/04/2006, 01/28/2006, 2005 MMR Vaccines Completed 11/07/2006 HIB Vaccines Completed 02/06/2007, 03/08, 01/28/2006, Additional history exists Pneumococcal Vaccine Completed 02/06/2007, 04/04/2006, 01/28/2006, Additional history exists Hepatitis A Vaccines Completed 06/30/2007, 11/07/19 07 Meningococcal Vaccine Aged Out No terri ibeth eligible based on patient's age to complete this topic
--- OUTSIDE RECORDS SUMMARY | 2025-08-19 15:21 | XMS_ITS | Encounter Summary ---
Author Organization [employer] Address [address] [place] [address] [address] [place] [address] Care Team Providers Care Professor Of French Name Role Phone Nisreen Wesley MD Primary Care Provider [phone] Estefani Pires MD Primary Care Provider + Reason for Visit * Reason Comments Med Refill Encounter Details Date Type Department Care Team ([facility] st Contact Info) Description 11/25/2022 Refill [facility] [address] [place], [place] [phone] Rosemarie Barry MD [address] [place], [place] [phone] Social History Tobacco Use Types Packs/Day Years [...] on filedocumented in this encounter Care Teams Professor Of French Relationship Specialty Start Date End Date Nisreen Wesley MD [address] [place], [place] [phone] PCP - General Pediatrics 09/25/17 10/15/24 Estefani Pires MD [address] [place] [address] [phone] PCP - General Internal Medicine 10/16/24 documented as of this encounter
--- OUTSIDE RECORDS SUMMARY | 2025-08-19 15:21 | XMS_ITS | Encounter Summary ---
Author Organization [employer] Address [address] [facility] [address] [place] [address] Care Team Providers Care Metal Cut Off Saw Tender Name Role Phone Nisreen Wesley MD Primary Care Provider [phone] Estefani Pires MD Primary Care Provider + Encounter Details Date Type Department Care Team (Late st Contact Info) Description 10/23/2022 Orders Only [facility] [address] [place], [place] [phone] Narda Gutierrez LPN Social History Tobacco Use [...] on filedocumented in this encounter Care Teams Metal Cut Off Saw Tender Relationship Specialty Start Date End Date Nisreen Wesley MD [address] [place] [address] PCP - General Pediatrics 09/25/17 10/15/24 Estefani Pires MD [address] [place] [address] PCP - General Internal Medicine 10/16/24 documented as of this encounter
--- OUTSIDE RECORDS SUMMARY | 2025-08-19 15:21 | XMS_ITS | Encounter Summary ---
Author Organization [employer] Address [address] [facility] [address] [place] [address] Care Team Providers Care Cushion Maker Hand Name Role Phone Nisreen Wesley MD Primary Care Provider [phone] Estefani Pires MD Primary Care Provider + Reason for Visit * Reason Onset Date Comments Med Refill 11/14/2023 Encounter Details Date Type Department Care Team (Late st Contact Info) Description 11/14/2023 Refill [facility] [address] [place], [place] [phone] Nisreen Wesley MD [address] [place], [place] [phone] Social History Tobacco Use Types Packs/Day Years [...] is your housing situation today? I have glennakelly chapa 08/20/[address] you [...] documented as of this encounter Care Teams Cushion Maker Hand Relationship Specialty Start Date End Date Nisreen Wesley MD [address] [place] [address] PCP - General Pediatrics 09/25/17 10/15/24 Estefani Pires MD [address] [place] [address] PCP - General Internal Medicine 10/16/24 documented as of this encounter
--- OUTSIDE RECORDS SUMMARY | 2025-08-19 15:21 | XMS_ITS | Encounter Summary ---
Author Organization [employer] Address [address] [facility] [address] [place] [address] Care Team Providers Care Stripping Shovel Operator Name Role Phone Nisreen Wesley MD Primary Care Provider [phone] Estefani Pires MD Primary Care Provider + Reason for Visit * Reason Comments Med Refill Encounter Details Date Type Department Care Team ([facility] st Contact Info) Description 10/22/2022 Refill [facility] [address] [place], [place] [phone] Rosemarie Barry MD [address] [place], [place] [phone] Social History Tobacco Use Types Packs/Day Years [...] documented in this encounter Plan of Treatment Not on file documented as of this encounter Visit Diagnoses Not on filedocumented in this encounter Care Teams Stripping Shovel Operator Relationship Specialty Start Date End Date Nisreen Wesley MD [address] [place], [place] [phone] PCP - General Pediatrics 09/25/17 10/15/24 Estefani Pires MD [address] [place] [address] [place] [address] PCP - General Internal Medicine 10/16/24 documented as of this encounter
--- OUTSIDE RECORDS SUMMARY | 2025-08-19 15:22 | XMS_ITS | Encounter Summary ---
Author Organization [facility] Address [address] [place] [address] Phone Care Team Providers Care Peoplesoft Consultant Name Role Phone Terry Aranda MD Primary Care Provider [phone] Encounter Details Date Type Department Care Team (Late st Contact Info) Description 05/07/2011 Documentation EM Family Medicine [address] [place] [address] Family Medicine, Physician [address] [place], [place] [phone] Social History Tobacco Use Types Packs/Day Years [...] on filedocumented in this encounter Care Teams Peoplesoft Consultant Relationship Specialty Start Date End Date Terry Aranda MD [address] [place] [address] PCP - General 05/17/17 12/19/22 documented as of this encounter
--- OUTSIDE RECORDS SUMMARY | 2025-08-19 15:22 | XMS_ITS | Clinical Summary ---
Author Organization [employer] Address [address] [facility] 7t [place] [address] Care Team Providers Care Generating Plant Superintendent Name Role Phone Estefani Pires MD Primary Care Provider + Allergies Active Allergy Reactions Criticality Noted Date Comments Mangifera Indica Hives 07/28/2025 Pineapple Hives 07/28/2025 [place] Extract Hives 07/28/2025 Medications * This document contains information received from the source organization and may not represent a complete record from that organization. Concerta 27 MG CR tablet Take 27 mg by mouth in the morning. 07/10/20 23 Active desmopressin (DDAVP) 0.2 MG tablet Take 200 mcg by mouth 2 times daily. 01/04/20 23 Active sertraline (Zoloft) 25 MG tablet Take 25 mg by mouth Once per day. 02/04/20 24 Active loratadine (Claritin) 10 MG tablet Take 1 tablet (10 mg) by mouth if needed each day for allergies. 90 tablet 3 10/23/19 25 026 Active hydrOXYzine pamoate (Vistaril) 25 MG capsule Take 1 capsule (25 mg) by mouth every 8 (eight) hours if needed for anxiety. 90 capsule 3 10/23/19 25 026 Active Ventolin HFA 108 (90 Base) MCG/ACT inhaler INHALE 2 PUFFS EVERY 6 HOURS IF NEEDED FOR WHEEZING. 18 g 1 03/09/20 25 Active Additional Information Patient not taking.Reason: Not available (pt hasnt been taking), Reported on 07/28/2025 ibuprofen 400 MG tabletIndicat ions:Arthralg ia of both hands TAKE 1 TABLET BY MOUTH EVERY 6 HOURS NEEDED FOR FEVER OR PAIN 30 tablet 1 05/27/20 25 Active Multiple Vitamin (Daily-Estevan Multivitamin) tablet TAKE 1 TABLET BY MOUTH EVERY DAY 90 tablet 1 07/01/20 25 Active solifenacin (VESIcare) 5 MG tablet Take 1 tablet (5 mg) by mouth Once per day. 90 tablet 1 07/28/20 25 Active solifenacin (VESIcare) 5 MG tablet Take 5 mg by mouth in the morning. 01/04/20 23 025 Discontinued(Re order (will not trigger notification to Pharmacy)) Active Problems Problem Noted Date Diagnosed Date Immunization declined 07/28/2025 Assessment & Plan (07/28/2025 2:29 PM EDT): Declined COVID and influenza immunization today. Positive ESTEFANI (antinuclear antibody) 01/07/2025 Assessment & Plan (01/07/2025 3:00 PM EDT): For over a year now, due to polyarthralgias, I will rule out other autoimmune disorders Consider referral to rheumatology if symptoms continue Arthralgia of left knee 01/07/2025 Assessment & Plan (01/07/2025 3:00 PM EDT): Unclear if related to DJD or posttraumatic arthritis She is wearing a knee brace, referred to PT Arthralgia of both hands 12/29/2024 Assessment & Plan (05/27/2025 4:14 PM EDT): Labs are within normal limits, no evidence of inflammatory arthritis. He may be related to overuse Advised to use hand brace as needed especially for activities that require lifting heavy objects Refer to OT and follow-up with me in 3 months Assessment & Plan (01/07/2025 2:59 PM EDT): She seems to have tenosynovitis, unclear if it overuse versus an impinged tendon. Advised to use hand brace given today at the office, especially overnight and when using her left hand Will order order labs in view of positive ANAs to rule out other autoimmune disorders, will consider to refer to rheumatology Assessment & Plan (12/29/2024 1:13 PM EDT): [...] night. Follow-up with me after dental evaluation Recurrent bronchospasm 10/23/2024 Assessment & Plan (12/29/2024 [...] importance of taking medication regularly. Anxiety 08/11/2024 Assessment & Plan (05/27/2025 4:15 PM EDT): Her family dynamics are a big source of stress. Overall she is doing well, discussed with her the importance of communications daily including Concerta and sertraline. Advised to schedule appointment with psychiatry, she feels safe at home and is able to reach out for safety Encounter for preventative adult health care karuna mccabeation 07/06/2024 Assessment & Plan (07/28/2025 2:25 PM EDT): Discussed with patient re increase fresh fruit and vegetable intake. Counseled re moderate exercise as tolerated, up to 20min/d Patient feels safe at home. PAP smear, not due, will fu at age 23 or earlier PRN. Lipids/FBS: UTD, next one due on 2028 vaccinations: She declined influenza and COVID immunization today dental visit: Overdue, advised to make an appointment with our dental clinic. We discussed about STI prevention, condom use and use of control as needed. Test for STIs Assessment & Plan (07/06/2024 4:20 PM EDT): [...] Dental visit: Overdue, has appt next mo. Flexural eczema 07/24/2018 Intermittent urinary incontinence 04/28/2018 Assessment & Plan (07/28/2025 2:23 PM EDT): Will start her on Vesicare and discussed with patient regarding bladder training, avoid drinking fluids after 8 PM Refer to , no need for DDAVP for now Seasonal allergies 02/08/2017 Resolved Problems Problem Noted Date Diagnosed Date Resolved Date Precordial pain 10/23/2024 05/27/2025 Assessment & Plan (10/23/2024 3:52 PM EST): Patient has atypical chest pain, EKG is normal and she doesn't have significant CV RF, unlikely to be cardiac origin. It is most likely muscular or GERD, patient will keep track of symptoms and follow-up with me as needed. Pain in lower limb 06/06/2023 3 Behavior concern 04/28/2018 10/23/2024 Encounters * This document contains information received from the source organization and may not represent a complete record from that organization. Date Type Department Care Team Description 07/28/2025 10:30 AM EDT Office Visit [facility] [address] [place] [address] Estefani Pires MD Encounter for preventative adult health care examination (Primary Dx); Intermittent urinary incontinence; Screening examination for STI; Immunization declined 07/28/2025 Travel 07/27/[address] [address] Estefani Pires MD CHART PREP 07/27/[address] [address] [facility] 07/23/2025 Patient Outreach [address] [address] Estefani Pires MD Pre-visit Planning ([facility] screening completed on 05/27/25) 07/01/[address] [address] Estefani Pires MD 06/02/[address] [address] Estefani Pires MD november recall 05/27/2025 11:45 AM EDT Office Visit [address] [address] Estefani Pires MD Anxiety (Primary Dx); Arthralgia of both hands 05/27/2025 Travel 05/25/[address] [address] Estefani Pires MD Chart Prep 05/25/[address] [address] Estefani Pires MD Chart Prep from Last 3 Months Immunizations Immunization Administration Dates Next Due DTaP 02/06/2007 DTaP [...] Answer Date Recorded Patient Health Questionnaire-9 Score 11 05/27/2025 Patient Health Questionnaire-9 Score 11 05/27/2025 Last PHQ-9: Questionnaire Data Not on file 0 05/27/2025 Housing Stability Answer Date Recorded What is your housing situation today? I have glenna chapa 05/27/[address] you li ve. Do you have problems with any of the following? None of the above 05/27/2025 Food Insecurity Answer Date Recorded Within the past 12 months, y ou worried that your food would run out before you got money to buy more: Never True 05/27/2025 Within the past 12 months,th e food you bought just didn't last and you didn't have enough money to get more: Never True Transportation Answer Date Recorded In the past 12 months, has l ack of transportation kept you from medical appts, meetings, work or from getting things needed for daily living? No 05/27/2025 Utilities Answer Date Recorded In the past 12 months, has t he electric, gas, oil or water company threatened to shut off services in your home? No 05/27/2025 Depression Answer Date Recorded Patient Health Questionnaire-2 Score 3 05/27/2025 Internet Access Answer Date Recorded Internet Access Q1 Yes 05/27/2025 Internet Access Q2 Not on file 05/27/2025 Comments No Intention Date Recorded No desire to become (finding) 1 Sex and Gender Information Value Date Recorded Sex Assigned at Female 08/06/2022 10:21 AM EDT Legal Sex Female 10:21 AM EDT Gender Identity Female 08/06/2022 10:21 AM EDT Sexual Orientation Straight 08/06/2022 10 :21 AM EDT Last Filed Vital Signs Vital Sign Reading Time Taken Comments Blood Pressure 92/58 07/28/2025 10:44 AM EDT Pulse 60 07/28/2025 10:44 AM EDT Temperature 36.9 C (98.5 F) 07/28/2025 10:44 AM EDT Respiratory Rate 20 07/28/2025 10:44 AM EDT Oxygen Saturation 98% 02/18/2025 10:47 AM EDT Inhaled Oxygen Concentration - - Weight 49.9 kg (110 lb) 07/28/2025 10:44 AM EDT Height 149.9 cm (4' 11 ) 07/28/2025 10:44 AM EDT Body Mass Index 22.22 07/28/2025 10:44 AM EDT Plan of Treatment Health Maintenance Due Date Last Done Comments Dental Oral Exam 2005 Dental Prophylaxis 2005 Dental X-Ray: Bitewings 2005 Dental X-Ray: Full Mouth 2005 Meningococcal B Vaccine (1 of 2 - Standard) 2021 Chlamydia and Gonorrhea Screening 02/13/2023 02/13/2022 Fluoride Varnish 02/18/2024 08/20/2023 COVID-19 Vaccine ( - 2024- season) 2025 Influenza Vaccine (#1) 2025 , 07/27/2019, 06/25/2018, Additional history exists Depression Monitoring 11/27/2025 05/27/2025, 025 Alcohol/Substance Use Screening 05/27/2026 05/27/2025 Disability Screening 05/27/2026 05/27/2025 SDOH Screening 05/27/2026 05/27/2025 Family Planning (PISQ) 07/28/2026 07/28/2025 Tobacco Screening 07/28/2026 07/28/2025 DTaP/Tdap/Td Vaccines (7 - Td or Tdap) [...] Years) and At-Risk Patients (6 to 49) Years Aged Out 02/06/2007, 04/04/2006, 01/28/2006, Additional history exists No longer eligible based on patient's age to complete this topic Hepatitis A Vaccines Completed 06/30/2007, 11/07/19 07 IPV Vaccines Completed 07/18/2010, 03/08, 01/28/2006, Additional history exists MMR Vaccines Completed 07/18/2010, 10/2006, 11/07/2006 Varicella Vaccines Completed 07/18/2010, 11/07/2006 HPV Vaccines Completed 05/01/2019, 04/28/2018 Meningococcal Vaccine Completed 05/22/2022, 018 HIV Screening Completed 08/14/2023 Hepatitis C Screening Completed 12/29/2024, 024 RSV under 20 months Aged Out No longe r eligible based on patient's age to complete this topic Rotavirus Vaccines Aged Out No longer eligible based on patient's age to complete this topic Procedures Procedure Name Priority Date/Time Associated Diagnosis Comments T4, FREE Routine 08/19/2025 12:10 PM EST TSH W/REFLEX TO FT4 Routine 08/19/2025 1 2:10 PM EST Intermittent urinary incontinence BASIC METABOLIC PANEL Routine 08/19/2025 12:10 PM EST Intermittent urinary incontinence HEPATITIS PANEL, GENERAL Routine 12/29/2024 12:25 PM EDT Arthralgia of both hands TOPICAL APPLICATION OF FLUORIDE VARNISH Routine 08/20/2023 11:15 AM EST HIV 1/2 ANTIGEN/ANTIBODY, FOURTH GENERATION W/RFL Routine 08/14/2023 2:27 PM EST Weight loss, unintentional ZZZ HISTORICAL CHLAMYDIA/N. GONORRHOEAE RNA, TMA, UROGENITAL Routine 02/13/2022 9:55 AM EDT from Last 3 Months or Most Recently Relevant to Health Maintenance Results * (ABNORMAL) TSH with Reflex to Free T4 (08/19/2025 12:10 PM EST) TSH reflex Free T4 0.22(L) 0.32 - 4.0 uIU/mL [facility] Blood 08/19/2025 12:1 0 PM EST 08/19/2025 1:04 PM EST us Estefani Pires MD LAB BLOOD ORDERABLES Fin al Result [facility] [address] [place] [phone] * T4, Free (08/19/2025 12:10 PM EST) Free T4 (Free Thyroxine) 1.20 0.71 - 1.85 ng/dL [facility] 08/19/2025 12:1 0 PM EST 08/19/2025 1:04 PM EST Estefani Pires MD LAB BLOOD ORDERABLES Fin al Result Performing Organization Address [facility] Co de Phone Number [facility] [address] [place] [address] [phone] * (ABNORMAL) Basic Metabolic Panel (08/19/2025 12:10 PM EST) Pathologist [facility] Sodium 141 135 - 145 mmol/L [facility] Potassium 4.2 3.3 - 5.1 mmol/L [facility] Comment:Slight Hemolysis.Int erpret result with caution. Chloride 107 96 - 108 mmol/L [facility] Carbon Dioxide 24 22 - 29 mmol/L [facility] Anion Gap 14 12 - 20 [facility] Urea Nitrogen (BUN) 8(L) 9 - 16 mg/dL [facility] Creatinine, Serum 0.69 0.5 - 1.4 mg/dL [facility] Estimated Glomerular Filt Rate >60 [facility] Comment:Chronic Kidney Disea se: Estimated GFR < 60 mL/min/1.90n7Opnmcn Kidney Disease: Estimated GFR < 15 mL/min/1.73m2 Glucose 90 60 - 115 mg/dL [facility] Calcium 9.8 8.4 - 10.2 mg/dL [facility] Blood Venous blood specimen / Unknown 08/19/2025 12:10 PM EST 08/19/2025 1:04 PM EST us Estefani Pires MD LAB BLOOD ORDERABLES Fin al Result Performing Organization Address [facility]/ZIP Co de Phone Number [facility] [address] [place] [address] [phone] * Hepatitis Panel, General (12/29/2024 12:25 PM EDT) Hepatitis A IgM Nonreactive Nonreactive [facility] Comment:IgM antibodies to GUADARRAMA V not detected; does not exclude earlyacute or recovered HAV infection. ~Hepatitis B Surface Antibody REACTIVE Nonreactive [facility] Comment:REACTIVE: > 11.99 mI U/mL Hepatitis B Core Antibody Nonreactive Nonreactive [facility] Hepatitis C Antibody Nonreactive Nonreactive [facility] Comment:Antibodies to HCV no t detected; does not exclude early acuteHCV infection. Hepatitis B Surface Ag Negative Negative [facility] Blood 12/29/2024 12:2 5 PM EDT 12/29/2024 1:12 PM EDT us Estefani Pires MD LAB BLOOD ORDERABLES Fin al Result Performing Organization Address [facility]/ZIP Co de Phone Number [facility] [address] [place] [address] [phone] * HIV-1/2 Antigen and Antibodies, Fourth Generation, with Reflexes (08/14/2023 2:27 PM EST) HIV AB/AG Nonreactive Nonreactive [facility] Comment:HIV-1 p24 Ag and/or HIV-1/HIV-2 Ab not detected.A test result that is nonreactive does not exclude thepossibility of exposure to or infection with HIV-1 and/orHIV-2. Nonreactive results in this assay for individualswith prior exposure to HIV-1 and/or HIV-2 may be due toantigen and antibody levels that are below the limit ofdetection of this assay.The [employer] HIV Ag/Ab Combo assay result andsupplemental assay results should be interpreted inconjunction with the patient's clinical presentation,history and other laboratory results. If the results areinconsistent with clinical evidence, additional testing issuggested to confirm the result. Blood Venous blood specimen / Unknown 08/14/2023 2:27 PM EST 08/14/2023 4:12 PM EST us Rupert Coyle MD LAB BLOOD ORDERABLES Final Result Performing Organization Address [facility]/State/ZIP Co de Phone Number [facility] [address] [place] [address] [phone] * CHLAMYDIA/N. GONORRHOEAE RNA, TMA, UROGENITAL (02/13/2022 9:55 AM EDT) Chlamydia trachomatis RNA, TMA, Urogenital NOT DETECTED NOT DETECTED [facility] COMMENT SEE COMMENT [facility] Comment: The analytical performance characteristics of this assay, when used to test SurePath(TM) specimens have been determined by [employer]. The modifications have not been cleared or approved by the FDA. This assay has been validated pursuant to the CLIA regulations and is used for clinical purposes. For additional information, please refer to https://education.HitchedPic/faq/LCX630 (This link is being provided for information/ educational purposes only.) Neisseria gonorrhoeae RNA, TMA, Urogenital NOT DETECTED NOT DETECTED [facility] 02/13/2022 9:55 AM EDT Rosemarie Barry MD HISTORICAL/NON ORDERABLE L ABS Final Result [facility] [address] from Last 3 Months or Most Recently Relevant to Health Maintenance Insurance [employer] [address] [facility] [address] [place] [address] [employer] [facility] ST[employer] CHILD Care Teams Generating Plant Superintendent Relationship Specialty Start Date End Date Estefani Pires MD [address] [place] [id number] PCP - General Internal Medicine 10/16/24
--- OUTSIDE RECORDS SUMMARY | 2025-08-19 15:22 | XMS_ITS | Encounter Summary ---
Author Organization [facility] Address [address] [place] [phone] Phone Care Team Providers Care Extrusion Supervisor Name Role Phone Terry Aranda MD Primary Care Provider [phone] Encounter Details Date Type Department Care Team (Late st Contact Info) Description 05/23/2017 Conversion Encounter [facility] [address] [place] [address] Social History Tobacco Use Types Packs/Day Years [...] on filedocumented in this encounter Care Teams Extrusion Supervisor Relationship Specialty Start Date End Date Terry Aranda MD [address] [place] [address] PCP - General 05/17/17 12/19/22 documented as of this encounter
[2025-08-20 03:42] LABS: Syphilis Screen Nonreactive (Nonreactive)
[2025-08-20 03:58] LABS: HBS Num1 17.02 mIU/mL (0-7.99); HBc Num1 0.09 S/CO (0.00-0.79); HBsAGNum1 0.49 S/CO (0.00-0.99); HIV Num 1 0.08 S/CO (0.00-0.99); Hepatitis A Antibody IgM 0.27 Index (0-0.79); Hepatitis B Surface Antigen Negative (Negative); ~HepC Num1 0.10 S/CO (0.00-0.79); ~Hepatitis A Antibody IgM Nonreactive (Nonreactive); ~Hepatitis B Surface Antibody REACTIVE (Nonreactive); ~Hepatitis C Antibody Nonreactive (Nonreactive)
== END 2025-08-19 12:08 | disposition home or self-care (01) ==
LOC: HO.HHCL 12:07
PROVIDERS: PCP Internal Medicine; Visit Provider Internal Medicine
DX: Z11.3 Encounter for screening for infections with a predominantly sexual mode of transmission (principal); Z11.59 Encounter for screening for other viral diseases; Z11.4 Encounter for screening for human immunodeficiency virus [HIV]; Z20.6 Contact with and (suspected) exposure to human immunodeficiency virus [HIV]; R32 Unspecified urinary incontinence
CPT/HCPCS: 36415; 80048; 84439; 84443; 86704; 86706; 86709; 86780; 86803; 87340; 87389

== ENCOUNTER 2025-09-10 09:08 | Outpatient (REF) | payer MEDICAID, SELFPAY ==
--- OUTSIDE RECORDS SUMMARY | 2025-09-10 09:44 | XMS_ITS | Encounter Summary ---
Author Organization [employer] Address [address] [facility] [address] [place] [address] Care Team Providers Care Earth Burner Name Role Phone Nisreen Wesley MD Primary Care Provider [phone] Estefani Pires MD Primary Care Provider + Reason for Visit * Reason Comments Med Refill Encounter Details Date Type Department Care Team ([facility] st Contact Info) Description 10/22/2022 Refill [facility] [address] [place], [place] [phone] Rosemarie Barry MD [address] [place], [place] [phone] Social History Tobacco Use Types Packs/Day Years [...] on filedocumented in this encounter Care Teams Earth Burner Relationship Specialty Start Date End Date Nisreen Wesley MD [address] [place], [place] [phone] PCP - General Pediatrics 09/25/17 10/15/24 Estefani Pires MD [address] [place] [address] [place] [address] PCP - General Internal Medicine 10/16/24 documented as of this encounter
--- OUTSIDE RECORDS SUMMARY | 2025-09-10 09:44 | XMS_ITS | Encounter Summary ---
Author Organization [employer] Address [address] [facility] 7t [place] [address] Care Team Providers Care Station Worker Name Role Phone Nisreen Wesley MD Primary Care Provider [phone] Estefani Pires MD Primary Care Provider + Encounter Details Date Type Department Care Team ([facility] st Contact Info) Description 06/22/2024 Telephone [facility] [address] [place], [place] [phone] Nisreen Wesley MD [address] [place], [place] [phone] Social History Tobacco Use Types Packs/Day Years [...] documented as of this encounter Care Teams Station Worker Relationship Specialty Start Date End Date Nisreen Wesley MD [address] [place] [address] PCP - General Pediatrics 09/25/17 10/15/24 Estefani Pires MD [address] [place] [address] PCP - General Internal Medicine 10/16/24 documented as of this encounter
--- OUTSIDE RECORDS SUMMARY | 2025-09-10 09:44 | XMS_ITS | Encounter Summary ---
Author Organization [employer] Address [address] [facility] [address] [place] [address] Care Team Providers Care Metalsmith Apprentice Name Role Phone Nisreen Wesley MD Primary Care Provider [phone] Estefani Pires MD Primary Care Provider + Encounter Details Date Type Department Care Team (Late st Contact Info) Description 10/23/2022 Orders Only [facility] [address] [place], [place] [phone] Narda Gutierrez LPN Social History Tobacco Use [...] on filedocumented in this encounter Care Teams Metalsmith Apprentice Relationship Specialty Start Date End Date Nisreen Wesley MD [address] [place] [address] PCP - General Pediatrics 09/25/17 10/15/24 Estefani Pires MD [address] [place] [address] PCP - General Internal Medicine 10/16/24 documented as of this encounter
--- OUTSIDE RECORDS SUMMARY | 2025-09-10 09:44 | XMS_ITS | Clinical Summary ---
Author Organization [employer] Address [address] [facility] 7t [place] [address] Care Team Providers Care Office Machines Wirer Name Role Phone Estefani Pires MD Primary Care Provider + Allergies Active Allergy Reactions Criticality Noted Date Comments Mangifera Indica Hives 07/28/2025 Pineapple Hives 07/28/2025 Hondo Extract Hives 07/28/2025 Medications * This document contains information received from the source organization and may not represent a complete record from that organization. Concerta 27 MG CR tablet Take 27 mg by mouth in the morning. 3 Active desmopressin (DDAVP) 0.2 MG tablet Take 200 mcg by mouth 2 times daily. 3 Active sertraline (Zoloft) 25 MG tablet Take 25 mg by mouth Once per day. 4 Active loratadine (Claritin) 10 MG tablet Take 1 tablet (10 mg) by mouth if needed each day for allergies. 90 tablet 3 5 10/23/19 26 Active hydrOXYzine pamoate (Vistaril) 25 MG capsule Take 1 capsule (25 mg) by mouth every 8 (eight) hours if needed for anxiety. 90 capsule 3 5 10/23/19 26 Active Ventolin HFA 108 (90 Base) MCG/ACT inhaler INHALE 2 PUFFS EVERY 6 HOURS IF NEEDED FOR WHEEZING. 18 g 1 5 Active Additional Information Patient not taking.Reason: Not available (pt hasnt been taking), Reported on 07/28/2025 ibuprofen 400 MG tabletIndicatio ns:Arthralgia of both hands TAKE 1 TABLET BY MOUTH EVERY 6 HOURS NEEDED FOR FEVER OR PAIN 30 tablet 1 5 Active Multiple Vitamin (Daily-Estevan Multivitamin) tablet TAKE 1 TABLET BY MOUTH EVERY DAY 90 tablet 1 5 Active solifenacin (VESIcare) 5 MG tablet Take 1 tablet (5 mg) by mouth Once per day. 90 tablet 1 5 Active Active Problems Problem Noted Date Diagnosed [...] safety Encounter for preventative adult health care exa mination 07/06/2024 Assessment & Plan (07/28/2025 2:25 PM [...] Encounters Date Type Department Care Team Description 08/31/2025 Results Follow-Up [address] [address] Estefani Pires MD HIV-1/2 Antigen and Antibodies, Fourth Generation, with Reflexes, Hepatitis Panel, General, Syphilis Screen, Additional followed-up results: 2 07/28/2025 10:30 AM EDT Office Visit [address] [address] Estefani Pires MD Encounter for preventative adult health care examination (Primary Dx); Intermittent urinary incontinence; Screening examination for STI; Immunization declined 07/28/2025 Travel 07/27/[address] [address] Estefani Pires MD CHART PREP 07/27/[address] [address] [facility] 07/23/2025 Patient Outreach [address] [address] Estefani Pires MD Pre-visit Planning ([facility] screening completed on 05/27/25) 07/01/[address] [address] Estefani Pires MD from Last 3 Months Immunizations Immunization Administration [...] Dental Prophylaxis 2005 Dental X-Ray: Bitewings 2005 Meningococcal B Vaccine (1 of 2 - Standard) 2021 Fluoride Varnish 02/18/2024 08/20/2023 Dental X-Ray: Full Mouth 01/16/2025 01/15/2022 COVID-19 Vaccine ( season) 2025 Influenza Vaccine (#1) 2025 , 07/27/2019, 06/25/2018, Additional history exists Depression Monitoring 11/27/2025 05/27/2025, 025 Chlamydia and Gonorrhea Screening 01/24/2026 01/24/2025, 08/29/2022, 02/13/2022, Additional history exists Alcohol/Substance Use Screening 05/27/2026 05/27/2025 Disability Screening [...] Vaccine Completed 05/22/2022, 018 HIV Screening Completed 08/19/2025, 08/14/2023 Hepatitis C Screening Completed 08/19/2025 , 12/29/2024, 07/06/2024 RSV under 20 months Aged Out No [...] 08/19/2025 12:10 PM EST Intermittent urinary incontinence SYPHILIS SCREEN Routine 08/19/2025 12:10 PM EST Screening examination for STI HEPATITIS PANEL, GENERAL Routine 08/19/2025 12:10 PM EST Screening examination for STI HIV 1/2 ANTIGEN/ANTIBODY, FOURTH GENERATION W/RFL Routine 08/19/2025 12:10 PM EST Screening examination for STI TOPICAL APPLICATION OF FLUORIDE VARNISH Routine 08/20/2023 11:15 AM EST ZZZ HISTORICAL CHLAMYDIA/N. GONORRHOEAE RNA, TMA, UROGENITAL Routine 02/13/2022 9:55 AM EDT from Last 3 Months or Most Recently Relevant to Health Maintenance Results * Syphilis Screen (08/19/2025 12:10 PM EST) Pathologist [facility] Syphilis Screen Nonreactive Nonreactive [facility] Blood 08/19/2025 12:1 0 PM EST 08/19/2025 1:04 PM EST us Estefani Pires MD LAB BLOOD ORDERABLES Fin al Result Performing Organization Address City/[facility]/ZIP Co de Phone Number [facility] [address] [place] [address] [phone] * (ABNORMAL) TSH with Reflex to Free T4 (08/19/2025 12:10 PM EST) Pathologist [facility] TSH reflex Free T4 0.22(L) 0.32 - 4.0 uIU/mL [facility] Blood 08/19/2025 12:1 0 PM EST 08/19/2025 1:04 PM EST Estefani Pires MD LAB BLOOD ORDERABLES Fin al Result Performing Organization Address City/[facility]/ZIP Co de Phone Number [facility] [address] [place] [address] [phone] * Hepatitis Panel, General (08/19/2025 12:10 PM EST) Pathologist [facility] Hepatitis A IgM Nonreactive Nonreactive [facility] Comment:IgM antibodies to GUADARRAMA V not detected; does not exclude earlyacute or recovered HAV infection. ~Hepatitis B Surface Antibody REACTIVE Nonreactive [facility] Comment:REACTIVE: > 11.99 mI U/mL Hepatitis B Core Antibody Nonreactive Nonreactive [facility] Hepatitis C Antibody Nonreactive Nonreactive [facility] Comment:Antibodies to HCV no t detected; does not exclude early acuteHCV infection. Hepatitis B Surface Ag Negative Negative [facility] Blood 08/19/2025 12:1 0 PM EST 08/19/2025 1:04 PM EST Estefani Pires MD LAB BLOOD ORDERABLES Fin al Result Performing Organization Address [facility] Co de Phone Number [facility] [address] [place] [phone] * HIV-1/2 Antigen and Antibodies, Fourth Generation, with Reflexes (08/19/2025 12:10 PM EST) HIV AB/AG Nonreactive Nonreactive [facility] Comment:HIV-1 p24 Ag and/or HIV-1/HIV-2 Ab not detected.A test result that is nonreactive does not exclude thepossibility of exposure to or infection with HIV-1 and/orHIV-2. Nonreactive results in this assay for individualswith prior exposure to HIV-1 and/or HIV-2 may be due toantigen and antibody levels that are below the limit ofdetection of this assay.The [employer] HIV Ag/Ab Combo assay result andsupplemental assay results should be interpreted inconjunction with the patient's clinical presentation,history and other laboratory results. If the results areinconsistent with clinical evidence, additional testing issuggested to confirm the result. Blood Venous blood specimen / Unknown 08/19/2025 12:10 PM EST 08/19/2025 1:04 PM EST Estefani Pires MD LAB BLOOD ORDERABLES Fin al Result Performing Organization Address City/[facility] Co de Phone Number [facility] [address] [place] [phone] * T4, Free (08/19/2025 12:10 PM EST) Free T4 (Free Thyroxine) 1.20 0.71 - 1.85 ng/dL [facility] 08/19/2025 12:1 0 PM EST 08/19/2025 1:04 PM EST us Estefani Pires MD LAB BLOOD ORDERABLES Fin al Result [facility] [address] [place] [phone] * (ABNORMAL) Basic Metabolic Panel (08/19/2025 12:10 PM EST) [facility] Sodium 141 135 - 145 mmol/L [facility] Potassium 4.2 3.3 - 5.1 mmol/L [facility] Comment:Slight Hemolysis.Int erpret result with caution. Chloride 107 96 - 108 mmol/L [facility] Carbon Dioxide 24 22 - 29 mmol/L [facility] Anion Gap 14 12 - 20 [facility] Urea Nitrogen (BUN) 8(L) 9 - 16 mg/dL [facility] Creatinine, Serum 0.69 0.5 - 1.4 mg/dL [facility] Estimated Glomerular Filt Rate >60 [facility] Comment:Chronic Kidney Disea se: Estimated GFR < 60 mL/min/1.42m6Juwczy Kidney Disease: Estimated GFR < 15 mL/min/1.73m2 Glucose 90 60 - 115 mg/dL [facility] Calcium 9.8 8.4 - 10.2 mg/dL [facility] Blood Venous blood specimen / Unknown 08/19/2025 12:10 PM EST 08/19/2025 1:04 PM EST Estefani Pires MD LAB BLOOD ORDERABLES Fin al Result [facility] [address] [place] [phone] * CHLAMYDIA/N. GONORRHOEAE RNA, TMA, UROGENITAL (02/13/2022 9:55 AM EDT) Chlamydia trachomatis RNA, TMA, Urogenital NOT DETECTED NOT DETECTED [facility] COM[facility] SEE COMMENT [facility] Comment: The analytical performance characteristics of this assay, when used to test SurePath(TM) specimens have been determined by [employer]. The modifications have not been cleared or approved by the FDA. This assay has been validated pursuant to the CLIA regulations and is used for clinical purposes. For additional information, please refer to https://education.[employer]/faq/KUW576 (This link is being provided for information/ educational purposes only.) Neisseria gonorrhoeae RNA, TMA, Urogenital NOT DETECTED NOT DETECTED [facility] 02/13/2022 9:55 AM EDT us Rosemarie Barry MD HISTORICAL/NON ORDERABLE L ABS Final Result [facility] [address] from Last 3 Months or Most Recently Relevant to Health Maintenance Insurance [employer] [address] [place] [address] [employer] [facility] MEDICAID STAND CHILD Care Teams Office Machines Wirer Relationship Specialty Start Date End Date Estefani Pires MD [address] [place] [phone] PCP - General Internal Medicine 10/16/24
--- OUTSIDE RECORDS SUMMARY | 2025-09-10 09:44 | XMS_ITS | Encounter Summary ---
Author Organization [facility] Address [address] [place] [phone] Phone Care Team Providers Care Private Duty Nurse Name Role Phone Terry Aranda MD Primary Care Provider [phone] Encounter Details Date Type Department Care Team (Late st Contact Info) Description 05/07/2011 Documentation EM Family Medicine [address] [place] [address] Family Medicine, Physician [address] [place], [place] [phone] Social History Tobacco Use Types Packs/Day Years [...] on filedocumented in this encounter Care Teams Private Duty Nurse Relationship Specialty Start Date End Date Terry Aranda MD [address] [facility] [place] [address] PCP - General 05/17/17 12/19/22 documented as of this encounter
--- OUTSIDE RECORDS SUMMARY | 2025-09-10 09:44 | XMS_ITS | Clinical Summary ---
Author Organization [facility] Address [address] [place] [phone] Phone Care Team Providers Care Assistant Merchandise Manager Name Role Phone Unavailable Primary Care Provider [...]
--- OUTSIDE RECORDS SUMMARY | 2025-09-10 09:44 | XMS_ITS | Encounter Summary ---
Author Organization [employer] Address [address] [place] [address] [address] [place] [address] Care Team Providers Care Pediatrician Name Role Phone Nisreen Wesley MD Primary Care Provider [phone] Estefani Pires MD Primary Care Provider + Reason for Visit * Reason Comments Med Refill Encounter Details Date Type Department Care Team ([facility] st Contact Info) Description 11/25/2022 Refill [facility] [address] [place], [place] [phone] Rosemarie Barry MD [address] [place], [place] [phone] Social History Tobacco Use Types Packs/Day Years [...] on filedocumented in this encounter Care Teams Pediatrician Relationship Specialty Start Date End Date Nisreen Wesley MD [address] [place], [place] [phone] PCP - General Pediatrics 09/25/17 10/15/24 Estefani Pires MD [address] [place] [address] [phone] PCP - General Internal Medicine 10/16/24 documented as of this encounter
--- OUTSIDE RECORDS SUMMARY | 2025-09-10 09:44 | XMS_ITS | Encounter Summary ---
Author Organization [employer] Address [address] [facility] 7t [place] [address] Care Team Providers Care Nanotechnology Technician Name Role Phone Nisreen Wesley MD Primary Care Provider [phone] Estefani Pires MD Primary Care Provider + Reason for Visit * Reason Onset Date Comments Med Refill 11/14/2023 Encounter Details Date Type Department Care Team (Late st Contact Info) Description 11/14/2023 Refill [facility] [address] [place], [place] [phone] Nisreen Wesley MD [address] [place], [place] [phone] Social History Tobacco Use Types Packs/Day Years [...] documented as of this encounter Care Teams Nanotechnology Technician Relationship Specialty Start Date End Date Nisreen Wesley MD [address] [place] [address] PCP - General Pediatrics 09/25/17 10/15/24 Estefani Pires MD [address] [place] [address] PCP - General Internal Medicine 10/16/24 documented as of this encounter
--- OUTSIDE RECORDS SUMMARY | 2025-09-10 09:45 | XMS_ITS | Encounter Summary ---
Author Organization [facility] Address [address] [place] [phone] Phone Care Team Providers Care Dock Boss Name Role Phone Terry Aranda MD Primary Care Provider Encounter Details Date Type Department Care Team (Late st Contact Info) Description 05/23/2017 Conversion Encounter [facility] [place] [address] [place] [address] Social History Tobacco Use Types Packs/Day Years [...] on filedocumented in this encounter Care Teams Dock Boss Relationship Specialty Start Date End Date Terry Aranda MD [address] [place] [address] PCP - General 05/17/17 12/19/22 documented as of this encounter
[2025-09-10 12:18] LABS: Free T4 (Free Thyroxine) 1.21 ng/dL (0.71-1.85); Thyroid Stimulating Hormone 0.54 uIU/mL (0.32-4.0)
== END 2025-09-10 09:09 | disposition home or self-care (01) ==
LOC: HO.HHCL 09:08
PROVIDERS: PCP Internal Medicine; Visit Provider Internal Medicine
DX: R79.89 Other specified abnormal findings of blood chemistry (principal)
CPT/HCPCS: 36415; 84436; 84439; 84443; 84480; 84481